=== PATIENT | female | born 1990 | race American Indian/Alaskan Native ===

== ENCOUNTER 2022-03-14 19:57 | Outpatient (CLI) | payer OTHER ==
[2022-03-14] MEDS ORDERED: LACTATED RINGERS 500 ML IV ONE (20:39)
--- NOTE | 2022-03-14 22:35 | Ultrasound Report ---
US OB limited INDICATION / CLINICAL INFORMATION: raheel, efw, fht COMPARISON: None available. TECHNIQUE: Using a transcutaneous probe, multiple grayscale, color Doppler, and spectral Doppler imag es of the uterus and fetus were captured and stored. FINDINGS: Single cephalic fetus with heart rate of 154 bpm is demonstrated. The amniotic fluid index is elevated measuring 27.0 cm. Biparietal Diameter = 7.91 cm = 31, 5 weeks, days Head Circumference = 26.42 cm = 28, 5 weeks, days Abdominal Circumference = 25.5 cm = 29, 5 weeks, days Femur Length = 4.98 cm = 26, 6 weeks, days Average Ultrasound Age (AUA) = 29, 2 weeks, days. EDC 05/28/2022. The clinical estimated gestational age is 30 weeks 0 days. Estimated weight = 1293 g. IMPRESSION: 1. Single living fetus with evidence of polyhydramnios. Estimated weight of 1293g, the ultrasou nd composite estimate of gestational age is 29 weeks 2 days. Signer Name: Bobo Wilson II, MD Signed: 03/14/2022 10:31 PM Workstation Name: [id number]
[2022-03-15 00:08] VITALS: BP 102/52
[2022-03-15] MEDS ORDERED: TERBUTALINE 1 MG/1 ML INJ SUB-Q ONE (00:15)
--- NOTE | 2022-03-15 01:24 | Ultrasound Report ---
US OB transvaginal INDICATION / CLINICAL INFORMATION: ctx's COMPARISON: None available. TECHNIQUE: Using an endovaginal probe, grayscale imaging of the cervix was captured and stored. FINDINGS: The endocervical canal appears closed and measures 2.8 cm. Internal os not clearly identified. IMPRESSION: 1. Closed endocervical canal measuring 2.8 cm. Signer Name: Bobo Wilson II, MD Signed: 03/15/2022 1:20 AM Workstation Name: [id number]
== END 2022-03-15 01:35 | disposition home or self-care (01) ==
LOC: TRG 19:57 → APU 21:36 → TRG 03-15 01:35
PROVIDERS: ATTEND Obstetrics & Gynecology Gynecology
DX: O40.3XX0 Polyhydramnios, third trimester, not applicable or unspecified (principal); O62.9 Abnormality of forces of labor, unspecified; Z3A.30 30 weeks gestation of pregnancy
CPT/HCPCS: 59025; 76816; 76817; 96360; 96372; J3105; J7120; 76815